=== PATIENT | female | born 1940 | race Asian ===

== ENCOUNTER → 2017-12-02 | Outpatient (CLI) | payer OTHER ==
--- NOTE | 2017-12-02 12:48 | MAMMOGRAPHY REPORT ---
BILATERAL DIGITAL SCREENING MAMMOGRAM TOMOSYNTHESIS WITH CAD: 12/02/2017 CLINICAL HISTORY: Routine screening. TECHNIQUE: Breast tomosynthesis in addition to standard 2D mammography was performed. Current study was also evaluated with a Computer Aided Detection (CAD) system. COMPARISON: Comparison is made to exams dated: 04/16/2016 mammogram, 04/11/2015 mammogram, 11/27/2013 ultrasound biopsy, 11/15/2013 ultrasound, 11/15/2013 mammogram - [facility], and . BREAST COMPOSITION: The tissue of both breasts is heterogeneously dense, which may obscure small mas ses. FINDINGS: No suspicious masses, calcifications, or areas of architectural distortion are noted in ei ther breast. There has been no significant interval change compared to prior exams. A benign appeari ng mass with an associated biopsy marker clip in the left subareolar breast is stable. IMPRESSION: ACR BI-RADS CATEGORY 2: BENIGN There is no mammographic evidence of malignancy. A 1 year screening mammogram is recommended. The pa tient will receive written notification of the results. Approximately 10% of breast cancers are not detected with mammography. A negative mammographic report should not delay biopsy if a clinically suggestive mass is present. Gerda Mishra M.D. /:12/02/2017 12:19:36 [employer] [facility] Room Supervisor: Rocco ANDERSON)(M), [facility] letter sent: Normal 1/2 BI-RADS Code: ACR BI-RADS Category 2: Benign
== END | disposition home or self-care (01) ==
LOC: C.MAMM 10:22
PROVIDERS: ATTEND Family Medicine
DX: Z12.31 Encounter for screening mammogram for malignant neoplasm of breast (principal)